=== PATIENT | female | born 2005 | race Caucasian/White ===

== ENCOUNTER 2025-07-27 18:19 | Inpatient (IN) | payer BC, SELFPAY ==
[2025-07-27 18:22] VITALS: BP 93/70; PULSE 95; RESP 14; TEMP 36.8; O2SAT 97; BMI 20.6
[2025-07-27 19:21] VITALS: BP 100/70; PULSE 80; RESP 16; O2SAT 98
--- NOTE | 2025-07-27 19:27 | EDS_ITS ---
HPI History of Present Illness Chief Complaint: Substance Abuse Detail of Chief Complaint: Requesting detox for Xanax and cocaine abuse. Onset/Context/Timing Onset: Weeks Context: Gradual Onset Timing: Continuous Current Severity: Mild Maximum Severity: Mild Narrative Narrative: 19-year-old female history of substance abuse and depression. States she abuses Xanax and occasionally cocaine. She denies any IV drug abuse. Denies heroin. Today is here presenting requesting detox. She has never done inpatient detox. Prior similar symptoms: Yes Recent Illness/Hospitalization: Yes (Admitted for depression and suicidal thoughts within the last couple weeks.) [facility] Medical History Vaping nicotine dependence, tobacco product Former cigarette smoker Multiple hereditary exostoses Allergy/AdvReac Type Severity Reaction Status Date / Time No Known Allergies Allergy Verified 07/27/25 18:21 Family History (Updated 07/27/25 @ 19:[address] Kelly Hernandez MD) Mother Valvular heart disease Father Diabetes Multiple hereditary exostoses Surgical History History of surgery on lower extremity History of hip surgery H/O left wrist surgery History of hand surgery History of tonsillectomy and adenoidectomy Social History (Updated 07/27/25 @ 19:[address] Kelly Hernandez MD) household members: family Smoking Status: Current every day smoker tobacco type: e-cigarettes Electronic Cigarette Use: with nicotine how long ago did patient quit smoking: Former cigarette tobacoo use->now vaping at least 2x/day. alcohol intake: never substance use type: crack/cocaine and other details: BZD, xanax 0.25 mg ingested usually ~2x daily. ROS ROS ED ROS Narrative Denies recent illness. Constitutional Constitutional ED: Denies chills or fever(s) Eyes Eyes: Denies blurry vision ENT ENT ED: Denies ear pain Cardiovascular Cardiovascular: Denies chest pain or palpitations Respiratory/Chest Respiratory/Chest: Denies cough or dyspnea Gastrointestinal Gastrointestinal: Denies abdominal pain Genitourinary Genitourinary ED: Denies dysuria or LMP (females 10-50) Musculoskeletal Musculoskeletal: Denies arthralgias or back pain Integumentary Denies abscess Neurologic Neurologic: Denies headache(s) Psychiatric Psychiatric: Denies anxiety Endocrine Endocrinology: Denies cold intolerance Hematologic/Lymphatic Hematologic/Lymphatic: Denies easy bleeding, easy bruising or lymphadenopathy Allergic/Immunologic Allergic/Immunologic ED: Denies mouth swelling, tongue swelling or urticaria EXAM Physical Exam Narrative Exam Narrative: 19-year-old female sitting upright in bed. Man present in the room. Vital signs stable afebrile. No distress. H EENT exam pupils round react light. Moist extremities. No trauma. Neck nontender no lymphadenopathy. Neck nontender. Lungs clear to auscultation bilaterally. Heart regular rhythm rate about 80 no murmur. Chest wall ribs nontender. Abdomen soft nontender. No peritoneal signs. Moving all 4 extremities. Normal range of motion. Normal strength. No track cristobal. Patient is awake and alert. Answering questions following commands. Const Vital Signs: 07/27/25 18:22 07/27/25 19:21 07/27/25 19:30 Temperature 98.3 F 98.3 F Temperature Source Temporal Pulse Rate 95 80 80 Respiratory Rate 14 16 16 Blood Pressure 93/70 100/70 100/70 Blood Pressure Mean 77 80 80 Pulse Ox 97 98 98 Oxygen Delivery Method Room Air Positive well nourished and well developed; Negative for obese, cachectic, contractures or unkempt General Appearance ED: well developed and NAD; Negative for unkempt, cachectic, contractures or pallor Nutritional Appearance: Negative for cachectic or obese HEENT Reports moist mucous membranes atraumatic Eyes PERRL and EOMs intact bilaterally Neck no lymphadenopathy, supple and no JVD Lymph Lymphatic: no lymphadenopathy noted Chest Wall inspection of chest normal and palpation of chest normal Resp normal respiratory effort and clear to auscultation bilaterally Cardio regular rate, regular rhythm, S1 normal heart sound, S2 normal heart sound and no murmurs GI soft to palpation, non-tender, non-distended and no masses Back/Spine no CVA tenderness General Back: Negative for CVA tenderness Cervical Spine: Negative for cervical spine tenderness Thoracic Spine / Upper Back: Negative for thoracic spinal tenderness Lumbar Spine / Lower Back: Negative for lumbar spinal tenderness Coccyx: Negative for swelling Extremity General Extremety ED: Negative for edema or tenderness General Extremity: Negative for edema Neuro oriented x3 and CN's II-XII intact bilaterally Sensorium / Orientation: alert, oriented to person, oriented to place and oriented to time Speech: speech normal Motor Exam: strength 5/5 throughout Psych mental status grossly normal and thought process normal Appearance: Negative for unkempt Skin General Skin Exam: Negative for jaundice or pallor Lesions: no lesions Rashes: no rashes Trauma: Negative for abrasion or laceration MDM MDM MDM Narrative Medical decision making narrative: 19-year-old female history of Xanax abuse and occasionally cocaine. Presents for detox. Currently not in withdrawal. Have already spoken to the hospitalist and patient will be admitted for detox. Her exam is benign. We are awaiting her labs. History & Record Review Discussion w/independent historian: Patient and Family Lab Data Attestation: I reviewed the patient's lab results. Lab results narrative: CBC unremarkable. White count of 6. H&H 12 and 36. Platelets 216. Chemistries unremarkable. Gap 14. Normal BUN/creatinine. Glucose 96. Liver enzymes normal. Tox presumptive positive for amphetamines and cannabis. Alcohol negative. Labs: Laboratory Results - last 24 hr 07/27/25 19:05 WBC 6.7 RBC 4.08 L Hgb 12.4 Hct 36.2 L MCV 88.7 MCH 30.4 MCHC 34.3 RDW Std Deviation 41.7 RDW Coeff of Jia 12.9 Plt Count 216 MPV 10.0 Immature Gran % (Auto) 0.300 Neut % (Auto) 57.6 Lymph % (Auto) 34.3 [place] % (Auto) 6.0 Eos % (Auto) 1.2 Baso % (Auto) 0.6 Absolute Neuts (auto) 3.9 Absolute Lymphs (auto) 2.29 Nucleated RBC % 0 Sodium 139 Potassium 3.4 Chloride 106 Carbon Dioxide 20.0 L Anion Gap 14 BUN 14 Creatinine 0.79 Estim Creat Clear Calc 97.77 Est GFR (MDRD) Non-Af 110 BUN/Creatinine Ratio 18.0 Glucose 96 Calcium 9.5 Total Bilirubin 0.66 AST 24 ALT 11 Alkaline Phosphatase 62 Total Protein 7.7 Albumin 4.9 Globulin 2.8 Albumin/Globulin Ratio 1.7 Serum , Qual NEGATIVE Urine Opiates Screen NEGATIVE U Buprenorphine Qual NEGATIVE Ur Oxycodone Screen NEGATIVE Urine Methadone Screen NEGATIVE Urine Fentanyl Screen NEGATIVE Ur Barbiturates Screen NEGATIVE Ur Phencyclidine Scrn NEGATIVE Ur Amphetamines Screen PRESUMPTIVE POSITIVE U Benzodiazepines Scrn PRESUMPTIVE POSITIVE Urine Cocaine Screen NEGATIVE U Cannabinoids Screen PRESUMPTIVE POSITIVE Ethyl Alcohol < 10.1 Discharge Plan Dx/Rx/DC Orders Clinical Impression: Xanax use disorder, mild, abuse, Cocaine abuse, Admitted to substance misuse detoxification center Disposition Disposition: Acute Care Hospital [facility] Discharge Date/Time: 07/27/25 20:07
[2025-07-27 19:28] LABS: Hematocrit 36.2 % (37-47); Hemoglobin 12.4 g/dL (12.0-15.0); Immature Granulocytes Count 0.020 X10^3/uL (0.0-0.0); Mean Corp Hgb Conc 34.3 g/dL (32-36); Mean Corpuscular Volume 88.7 fL (81-99); Mean Platelet Vol. 10.0 fl (6.2-12.0); NRBC Flagged by Analyzer 0 % (0-5); Platelet Count 216 K/mm3 (150-450); RBC Distribution Width CV 12.9 % (11.6-14.6); RBC Distribution Width SD 41.7 fl (35.1-43.9); Red Blood Count 4.08 M/mm3 (4.2-5.4); White Blood Count 6.7 K/mm3 (4.4-11.0)
[2025-07-27 19:30] VITALS: BP 100/70; PULSE 80; RESP 16; TEMP 36.8; O2SAT 98
--- NOTE | 2025-07-27 19:32 | PCM.HP.STD ---
HPI - General General Date of Admission: 07/27/25 Date of Service: 07/27/25 Chief Complaint: BZD Detoxification request HPI Narrative The patient is a 19 y/o F w/ PMHx: Tobacco use, Polysubstance abuse (Cocaine usually snorted last used 2 weeks previously to current presentation, Xanax ingested orally usually 0.25 mg tablets at least twice a day, last usage ~ 1 pm on day of presentation), Hereditary Multiple Exostoses who presents to [facility] ED on 07/27/2025 with request for withdrawal treatment/detoxification for benzodiazepines with last usage 1 PM on day of presentation with onset notable fatigue, diaphoresis as well as mild abdominal cramping prompting ED evaluation. Workup in the ED included T98.3, heart rate 95, BP 93/70, respiratory rate 14, 97% room air with most recent repeat vitals heart rate 80, BP 100/70, respiratory rate 16, 98% room air, CBC with WC 6.7, hemoglobin 12.4, platelet 216 without marked shift, pending CMP upon requested evaluation of patient, pending UDS as well as ethyl alcohol level. [facility] Medical History Vaping nicotine dependence, tobacco product Former cigarette smoker Multiple hereditary exostoses Allergy/AdvReac Type Severity Reaction Status Date / Time No Known Allergies Allergy Verified 07/27/25 18:21 Family History (Updated 07/27/25 @ 19:[address] Kelyl Hernandez MD) Mother Valvular heart disease Father Diabetes Multiple hereditary exostoses Surgical History History of surgery on lower extremity History of hip surgery H/O left wrist surgery History of hand surgery History of tonsillectomy and adenoidectomy Social History (Updated 07/27/25 @ 19:[address] Kelly Hernandez MD) household members: family Smoking Status: Former smoker Electronic Cigarette Use: with nicotine how long ago did patient quit smoking: Former cigarette tobacoo use->now vaping at least 2x/day. alcohol intake: never substance use type: crack/cocaine and other details: BZD, xanax 0.25 mg ingested usually ~2x daily. ROS ROS Narrative Admission Review of Systems: CONSTITUTIONAL: No weight loss, fever, chills, + weakness or fatigue. HEENT: Eyes: No visual loss, blurred vision, double vision or yellow sclerae. Ears, Nose, Throat: No hearing loss, sneezing, congestion, runny nose or sore throat. SKIN: No rash or itching, lesions, wounds. CARDIOVASCULAR: No chest pain, chest pressure or chest discomfort, palpitations, edema, orthopnea, syncopal events. RESPIRATORY: No shortness of breath, cough or sputum, wheezing, hemoptysis. GASTROINTESTINAL: + Abdominal cramping. No anorexia, nausea, vomiting , diarrhea,melena, BRBPR. GENITOURINARY: No dysuria, frequency, urgency or retention. NEUROLOGICAL: No headache, dizziness, syncope, paralysis, ataxia, numbness or tingling in the extremities, focal weakness, change in bowel or bladder control, seizure. MUSCULOSKELETAL: + muscle, back pain, joint pain or stiffness. HEMATOLOGIC: No anemia, bleeding or bruising. LYMPHATICS: No enlarged nodes. No history of splenectomy. PSYCHIATRIC: No history of depression or anxiety. ENDOCRINOLOGIC: + Currently reports of sweating, cold intolerance. No polyuria or polydipsia. ALLERGIES: No history of asthma, hives, eczema or rhinitis. Vital Signs Vital Signs Vital Signs: 07/27/25 18:22 07/27/25 19:21 07/27/25 19:30 Temperature 98.3 F 98.3 F Temperature Source Temporal Pulse Rate 95 80 80 Respiratory Rate 14 16 16 Blood Pressure 93/70 100/70 100/70 Blood Pressure Mean 77 80 80 Pulse Ox 97 98 98 Oxygen Delivery Method Room Air Weight Weight: 120 lb 3.2 oz Body Mass Index (BMI) 20.6 Physical Exam Narrative Physical Examination: General: Awake, alert, oriented x 3 and cooperative, laying in ED bed, fatigued but no acute distress. Skin: Normal color, normal turgor, no icterus, no cyanosis. HEENT: AT/NC, EOMI, PERRLA, mildly dry MM, no carotid bruits or JVD noted. Lungs: CTA bilaterally, moderate effort, mild decrease BL bases, no rales, ronchi or wheezing. Heart: Regular rate and rhythm; no gallop, rub audible. Abdomen: Soft, mild generalized discomfort with no rebound or guarding, ND, mildly hyperactive BS, no appreciated HSM. Extremities: No cyanosis, clubbing, or edema. Neurological: Patient awake, alert, oriented as noted, cognitive function intact; pupils equally reactive to light and accommodation, cranial nerves grossly normal, moving all 4 extremities, no focal deficits, strength mildly to moderately globally decreased. Psychiatric: Affect appears fatigued, no acute evidence of depressive or anxiety feelings. Results Lab / Micro Data 07/27/25 19:05 07/27/25 19:05 Labs: Laboratory Results - last 24 hr 07/27/25 19:05: WBC 6.7, RBC 4.08 L, Hgb 12.4, Hct 36.2 L, MCV 88.7, MCH 30.4, MCHC 34.3, RDW Std Deviation 41.7, RDW Coeff of Jia 12.9, Plt Count 216, MPV 10.0, Immature Gran % (Auto) 0.300, Neut % (Auto) 57.6, Lymph % (Auto) 34.3, [place] % (Auto) 6.0, Eos % (Auto) 1.2, Baso % (Auto) 0.6, Absolute Neuts (auto) 3.9, Absolute Lymphs (auto) 2.29, Nucleated RBC % 0 Assessment & Plan Assessment/Plan (1) Admitted to substance misuse detoxification center: PLAN: Plan The patient is a 19 y/o F w/ PMHx: Tobacco use, Polysubstance abuse (Cocaine usually snorted last used 2 weeks previously to current presentation, Xanax ingested orally usually 0.25 mg tablets at least twice a day, last usage ~ 1 pm on day of presentation), Hereditary Multiple Exostoses who presents to the [facility] ED on 07/27/2025 with request for withdrawal treatment/detoxification for benzodiazepines. #1. Acute BZD Withdrawal: Will admit to [facility], routine labs obtained in the ED upon presentation and pending upon evaluation. As long as testing is negative we will proceed with admission given interest in clean status. Will initiate and continue on protocol with taper course of Phenobarbital with breakthrough pulse Ativan if necessary, as needed gabapentin, Catapres, Bentyl, Vistaril, IV fluids, IV antiemetics, Tylenol as needed for pain. Will consult Case management for assistance for transition to next level of rehabilitation care. #2. Hereditary Multiple Exostoses: Diagnosed in youth, father with similar disease, patient has had several surgeries for removal of noncancerous bone lesions, encourage continued follow-up and evaluation of noncancerous bone tumor growths. #3. Former cigarette tobacco use-> currently vaping: Encouraged cessation, inpatient consultation per RT, NR if desired. #4. DVT prophylaxis: Low risk, encourage ambulation. Charges/Coding Visit Charges Inpatient E&M: 66030 Init Hosp L2
--- NOTE | 2025-07-27 19:36 | CM.ED ---
Social Work Patient presented to ED with desire to go through [facility] program Treatment navigator notified of patients admission. Kizzy Jean, AIR CONDITIONING INSTALLER SUPERVISOR, MANAGEMENT LEAD
[2025-07-27 19:52] LABS: Alcohol, Blood (Medical)-Serum < 10.1 mg/dL (<=10.0)
[2025-07-27 19:56] LABS: AST(SGOT) 24 U/L (<=31); Alanine Aminotransfer ALT/SGPT 11 U/L (<=34); Albumin, Serum 4.9 g/dL (3.5-5.0); Alkaline Phosphatase 62 U/L (35-104); Anion Gap 14 (5-15); BUN 14 mg/dL (4-19); BUN/Creat Ratio 18.0 RATIO (10-20); Barbiturate Urine NEGATIVE (< 200 ng/mL); Benzodiazepine Urine PRESUMPTIVE POSITIVE (< 200 ng/mL); Calcium,Total 9.5 mg/dL (7.6-11.0); Carbon Dioxide 20.0 mmol/L (21.0-32.0); Chloride 106 mmol/L (98-108); Estimated Creatinine Clearance 97.77 ml/min (50-250); Globulin 2.8 g/dL (2.2-4.2); Glucose 96 mg/dL (70-99); PCP Urine NEGATIVE (< 25 ng/mL); Potassium 3.4 mmol/L (3.3-5.1); THC Urine PRESUMPTIVE POSITIVE (< 50 ng/mL)
[2025-07-27 19:58] LABS: Internal QC Validated? YES +Cl - CLEAR BKGD; Pregnancy, Serum, hCG Quali. NEGATIVE Negative
[2025-07-27 19:59] LABS: Record Kit Lot#, Serum Preg. 980607
[2025-07-27 20:37] VITALS: BP 103/67; PULSE 82; RESP 16; TEMP 36.9; O2SAT 99
[2025-07-27] MEDS: hydrOXYzine PAM 25 MG Capsule 50 MG PO (20:45)
[2025-07-27 23:59] VITALS: BP 89/53; PULSE 73; RESP 16; TEMP 36.4; O2SAT 99
[2025-07-28 04:39] VITALS: BP 95/48; PULSE 68; RESP 13; TEMP 36.6; O2SAT 98
[2025-07-28] MEDS: Nicotine 2mg Gum (PBKC) 2 MG GUM PO ×2 (04:46→17:25)
[2025-07-28 07:32] VITALS: O2SAT 95
[2025-07-28 07:52] VITALS: BP 88/41; PULSE 77; RESP 16; TEMP 36.4; O2SAT 100
--- NOTE | 2025-07-28 08:09 | PN.HOSP_ITS ---
Reason for Visit Chief Complaint: BZD Detoxification request Subjective Subjective Feeling little bit tired and has been sleeping a lot, ate breakfast well, has an appointment Wednesday morning to discuss medicines for her anxiety and is worried about potentially missing that, otherwise no acute complaints Objective Data Objective Data Vital Signs: Vital Signs Temp Pulse Resp BP Pulse Ox O2 Del Method 97.5 F L 77 16 88/41 L 100 Room Air 07/28/25 07:52 07/28/25 07:52 07/28/25 07:52 07/28/25 07:52 07/28/25 07:52 07/28/25 07:52 Oxygen Delivery Method Room Air Weight: 53.07 kg Body Mass Index (BMI) 20.0 Lab / Micro Data 07/27/25 19:05 07/27/25 19:05 Labs: Laboratory Results - last 24 hr 07/27/25 19:05: WBC 6.7, RBC 4.08 L, Hgb 12.4, Hct 36.2 L, MCV 88.7, MCH 30.4, MCHC 34.3, RDW Std Deviation 41.7, RDW Coeff of Jia 12.9, Plt Count 216, MPV 10.0, Immature Gran % (Auto) 0.300, Neut % (Auto) 57.6, Lymph % (Auto) 34.3, [place] % (Auto) 6.0, Eos % (Auto) 1.2, Baso % (Auto) 0.6, Absolute Neuts (auto) 3.9, Absolute Lymphs (auto) 2.29, Nucleated RBC % 0, Sodium 139, Potassium 3.4, Chloride 106, Carbon Dioxide 20.0 L, Anion Gap 14, BUN 14, Creatinine 0.79, Estim Creat Clear Calc 97.77, Est GFR (MDRD) Non-Af 110, BUN/Creatinine Ratio 18.0, Glucose 96, Calcium 9.5, Total Bilirubin 0.66, AST 24, ALT 11, Alkaline Phosphatase 62, Total Protein 7.7, Albumin 4.9, Globulin 2.8, Albumin/Globulin Ratio 1.7, Serum , Qual NEGATIVE, Urine Opiates Screen NEGATIVE, U Buprenorphine Qual NEGATIVE, Ur Oxycodone Screen NEGATIVE, Urine Methadone Screen NEGATIVE, Urine Fentanyl Screen NEGATIVE, Ur Barbiturates Screen NEGATIVE, Ur Phencyclidine Scrn NEGATIVE, Ur Amphetamines Screen PRESUMPTIVE POSITIVE, U Benzodiazepines Scrn PRESUMPTIVE POSITIVE, Urine Cocaine Screen NEGATIVE, U Cannabinoids Screen PRESUMPTIVE POSITIVE, Ethyl Alcohol < 10.1 Physical Exam Narrative General: Wakes up easily, somewhat slow to answer questions or forgets what she is saying HEENT: Atraumatic, normocephalic Eyes: extraocular movements grossly intact Neck: Supple Respiratory: normal respiratory effort Cardiovascular: no edema appreciated GI: nondistended Extremities: Moving all extremities Neuro: No overt focal neurological deficits Psych: Overall cooperative Assessment & Plan Assessment/Plan (1) Benzodiazepine abuse: PLAN: Plan 19-year-old female history of tobacco use, cocaine use, Xanax use, hereditary multiple exostosis presented [facility] ED 07/27/2025 requesting detox from benzos. Usually ingest 0.25 mg tabs at least twice a day with last use 1 PM on day of presentation. # Benzodiazepine use disorder and withdrawal -Admitted to [facility] -Phenobarb taper initiated -As needed gabapentin, Catapres, Bentyl, Vistaril, IV fluids, IV antiemetics, Tylenol as needed for pain. #Hereditary Multiple Exostoses -Diagnosed in youth, father with similar disease, patient has had several surgeries for removal of noncancerous bone lesions -encourage continued follow-up and evaluation of noncancerous bone tumor growths. #Tobacco use -Advise cessation -Nicotine replacement available if desired. #DVT ppx: Low risk, ambulatory Mrely Ho MD Charges/Coding Visit Charges Inpatient E&M: 51014 Subs Hosp L1
[2025-07-28 10:16] VITALS: BP 98/59; PULSE 82; RESP 16; TEMP 36.8; O2SAT 99
[2025-07-28 15:41] VITALS: BP 91/60; PULSE 81; RESP 16; TEMP 36.9; O2SAT 98
--- NOTE | 2025-07-28 16:42 | ADDICTION ---
Met with pt to complete [facility] assessments. Pt is struggling with using benzodiazapines and cocaine. She is agreeable to residential treatment and is willing to go to a place upon d/c from detox. Will look into placement Wednesday.
[2025-07-28 21:10] VITALS: BP 103/60; PULSE 76; RESP 16; TEMP 36.4; O2SAT 100
[2025-07-29 04:52] VITALS: BP 84/46; PULSE 80; RESP 16; TEMP 37; O2SAT 99
[2025-07-29] MEDS: Nicotine 2mg Gum (PBKC) 2 MG GUM PO ×3 (05:05→18:40)
[2025-07-29 05:43] VITALS: BP 102/63
--- NOTE | 2025-07-29 07:24 | PCM.PN.HOSP ---
Reason for Visit Chief Complaint: BZD Detoxification request Subjective Subjective Patient resting comfortably, denying any specific complaints Objective Data Objective Data Vital Signs: Vital Signs Temp Pulse Resp BP Pulse Ox O2 Del Method 98.6 F 80 16 102/63 99 Room Air 07/29/25 04:52 07/29/25 04:52 07/29/25 04:52 07/29/25 05:43 07/29/25 04:52 07/29/25 04:52 Oxygen Delivery Method Room Air Weight: 53.07 kg Body Mass Index (BMI) 20.0 Lab / Micro Data 07/27/25 19:05 07/27/25 19:05 Physical Exam Narrative General: Tired, wakes up easily but then pulls blanket over her head, eventually did sit up and answer questions HEENT: Atraumatic, normocephalic Eyes: extraocular movements grossly intact Neck: Supple Respiratory: normal respiratory effort Cardiovascular: no edema appreciated GI: nondistended Extremities: Moving all extremities Neuro: No overt focal neurological deficits Psych: Overall cooperative Assessment & Plan Assessment/Plan (1) Benzodiazepine abuse: PLAN: Plan 19-year-old female history of tobacco use, cocaine use, Xanax use, hereditary multiple exostosis presented [facility] ED 07/27/2025 requesting detox from benzos. Usually ingest 0.25 mg tabs at least twice a day with last use 1 PM on day of presentation. # Benzodiazepine use disorder and withdrawal -Admitted to [facility] -Phenobarb taper initiated -As needed gabapentin, Catapres, Bentyl, Vistaril, IV fluids, IV antiemetics, Tylenol as needed for pain. -07/29: Patient continued on phenobarb taper, met with [facility] coordinator and plan will be residential treatment, placement will be further looked into Wednesday. Suspect patient would be appropriate for placement Wednesday or Wednesday depending on symptoms #Tobacco use -Advise cessation -Nicotine replacement available if desired. -07/29: As needed nicotine gum ordered Chronic medical problems and/or problems not being actively addressed during today's encounter: #Hereditary Multiple Exostoses -Diagnosed in youth, father with similar disease, patient has had several surgeries for removal of noncancerous bone lesions -encourage continued follow-up and evaluation of noncancerous bone tumor growths. #DVT ppx: Low risk, ambulatory Merly Ho MD Charges/Coding Visit Charges Inpatient E&M: 83947 Subs Hosp L1
[2025-07-29 07:25] VITALS: O2SAT 94
[2025-07-29] MEDS: Nicotine (PBKC) 21 MG Patch TD (12:21)
[2025-07-29 12:26] VITALS: BP 105/62; PULSE 76; RESP 17; TEMP 37.1; O2SAT 100
--- NOTE | 2025-07-29 12:26 | NURSING ---
MANAGER FOOD SAFETY documentation reviewed.
[2025-07-29 15:08] VITALS: BP 100/58; PULSE 82; RESP 16; TEMP 36.7; O2SAT 99
[2025-07-29] MEDS: hydrOXYzine PAM 25 MG Capsule 50 MG PO (19:32)
[2025-07-29 20:40] VITALS: BP 107/74; PULSE 79; RESP 16; TEMP 36.6; O2SAT 100
[2025-07-30 01:15] VITALS: BP 106/49; PULSE 84; RESP 16; TEMP 36.9; O2SAT 97
[2025-07-30] MEDS: hydrOXYzine PAM 25 MG Capsule 50 MG PO ×3 (01:19→11:17)
[2025-07-30] MEDS: Nicotine 2mg Gum (PBKC) 2 MG GUM PO ×5 (02:03→13:34)
[2025-07-30 07:18] VITALS: O2SAT 96
[2025-07-30 08:00] VITALS: RESP 18
[2025-07-30 08:55] VITALS: BP 113/68; PULSE 100; RESP 16; TEMP 36.3; O2SAT 98
[2025-07-30] MEDS: Senna Tablet 2 TABLET PO (09:10)
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
--- NOTE | 2025-07-30 12:43 | DCINST_ITS ---
Discharge Instructions DC O2, CPAP, BIPAP needs Home O2 Discharge instructions: No Dressing / Incision Discharge Activity: - (Increase activity as tolerated) Follow Up Care Test Results: Test results from this visit will be discussed in further detail at your follow- up appointment, if applicable. Discharge Plan Admission Admit Date/Time: 07/27/25 19:33 Primary Reason for Your Visit: Benzodiazepine abuse Attending Provider: Merly Ho Primary Care Provider: NOT,DEFINED Consulting Providers: Kelly Hernandez Instructions Patient Instructions: ED Benzodiazepine Withdrawal Discharge Orders/Prescriptions Referrals / Follow Up: NOT,DEFINED [Primary Care Provider, None] Disposition Disposition (needs filled in before D/C Order can be placed): Inpt Substance Use Treatment
--- NOTE | 2025-07-30 12:45 | PCM.DC.SUM ---
Providers Date of Admission: 07/27/25 Date of Discharge: 07/30/25 Primary Care Physician: NOT DEFINED Reason For Visit: BZD WITHDRAWL/DETOX Diagnosis Discharge Diagnosis (1) Benzodiazepine abuse: Status: Acute Code(s): F13.10 - Sedative, hypnotic or anxiolytic abuse, uncomplicated Plan # Benzodiazepine use disorder and withdrawal #Cocaine use disorder #Anxiety #Tobacco use #Hereditary Multiple Exostoses Hospital Course Summary of Care Provided Minutes Spent on Discharge: 22 Hospital Course: Patient was admitted 07/27/2025 requesting detox from benzodiazepine. Patient was admitted and detox protocol ordered. They completed their detox and were discharged to inpatient s rehab for substance use, [facility] in [place]. On day of discharge patient feeling very anxious, received Vistaril and due for another dose. She reports she has been tried on multiple medications and they are working on adjusting her meds, most recently on Abilify for mood swings but she feels that it was making it worse. Discussed other medication options for anxiety for long-term control but patient was not interested in starting medication for this. Will defer to next provider assuming care regarding longer-term options for anxiety and mood swings. Physical Exam Narrative General: Awake and alert, appears anxious HEENT: Atraumatic, normocephalic Eyes: extraocular movements grossly intact Neck: Supple Respiratory: normal respiratory effort Cardiovascular: no edema appreciated GI: nondistended Extremities: Moving all extremities Neuro: No overt focal neurological deficits Psych: Tearful and anxious Weight / BMI Weight Weight: 53.07 kg Body Mass Index (BMI) 20.0 ABG / Lab / Microbiology Data 07/27/25 19:05 07/27/25 19:05 D/C Instructions Discharge Activity: Return to Normal Activity DC O2, CPAP, BIPAP Needs Home O2 Discharge instructions: No Meaningful Use Info Meaningful Use Meaningful Use Diagnoses (Choose all that apply): None applicable Discharge Plan Admission Admit Date/Time: 07/27/25 19:33 Primary Reason for Your Visit: Benzodiazepine abuse Attending Provider: Merly Ho Primary Care Provider: NOT,DEFINED Consulting Providers: Kelly Hernandez Instructions Patient Instructions: ED Benzodiazepine Withdrawal Discharge Orders/Prescriptions Referrals / Follow Up: NOT,DEFINED [Primary Care Provider, None] Disposition Disposition (needs filled in before D/C Order can be placed): Inpt Substance Use Treatment Discharge Orders: Discharge Patient (Routine); Ordered 07/30/25 Ordered By: Dr. Merly Ho Charges/Coding Visit Charges Inpatient E&M: 92282 Disch Hosp
[2025-07-30 14:04] VITALS: BP 107/71; PULSE 98; RESP 18; TEMP 37.1; O2SAT 98
== END 2025-07-30 14:06 | disposition other institution (70) | DRG 897 ==
LOC: ED 19:33 → MS3 19:48
PROVIDERS: Admitting Provider Family Medicine; Emergency Provider Emergency Medicine; Visit Provider Internal Medicine
DX: F13.130 Sedative, hypnotic or anxiolytic abuse with withdrawal, uncomplicated (principal); F14.10 Cocaine abuse, uncomplicated; F32.A Depression, unspecified; F17.290 Nicotine dependence, other tobacco product, uncomplicated; Q78.6 Multiple congenital exostoses
CPT/HCPCS: 80053; 80307; 82077; 84703; 85025; 99283